=== PATIENT | female | born 1970 | race Caucasian/White ===

== ENCOUNTER 2020-08-27 17:55 | Emergency (ER) | payer BC ==
[~2020-08-27] VITALS: Ht 154.9 cm; Wt 80.3 kg
--- NOTE | 2020-08-27 18:00 | PHYS DOC ---
Past History Past Medical History: Hypertension, Hypothyroid Past Medical History Intentional Wt. loss > 100 lbs General Adult EDM: Chief Complaint: CHEST PAIN HPI: HPI: ".. I was having these high blood pressures.. I think it is because of the diet medication.. I was taking .. this happen once before with I took Jocy D.. I used to take HTN meds.. but I had a intention wt. loss.. over 100 #.. I ve been working hard at it.. going to gym ect.. but last two days.. got some discomfort in my chest and Rt. shoulder...."... 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 Patient has past medical history of hypertension but no longer takes meds because of si gnificant weight loss. Patient does have a history of hypothyroidism. No recent travel or specific ill contacts. Has followed with [facility] in the past for primary care. Also sees an shoe lay out planner for hypothyroidism. No recent travel. No specific ill contacts. No history immunosuppression. No history of previous cardiac disease. Review of Systems: Review of Systems: Constitutional: Denies fever or chills Eyes: Denies change in visual acuity HENT: Denies nasal congestion or sore throat Respiratory: Denies cough or shortness of breath Cardiovascular: Denies chest pain or edema GI: Denies abdominal pain, nausea, vomiting, bloody stools or diarrhea : Denies dysuria Musculoskeletal: Denies back pain or joint pain Integument: Denies rash Neurologic: Denies headache, focal weakness or sensory changes Endocrine: Denies polyuria or polydipsia Lymphatic: Denies swollen glands Psychiatric: Denies depression or anxiety Family History: Family History: Noncontributory to presentation Current Medications: Current Meds: See nursing for home meds Allergies: Allergies: Allergies Coded Allergies Type Severity Reaction Last Updated Verified No Known Drug Allergies 08/27/20 No Physical Exam: PE: Constitutional: Moderate distress, non-toxic appearance. [] HENT: Normocephalic, atraumatic, bilateral external ears normal, oropharynx moist, no oral exudates, nose normal. [] Eyes: PERRLA, EOMI, conjunctiva normal, no discharge. Glasses Neck: Normal range of motion, no tenderness, supple, no stridor. [] Cardiovascular:Heart rate regular rhythm, no murmur [] Lungs & Thorax: Bilateral breath sounds equal apex auscultation [] Abdomen: Bowel sounds normal, soft, no tenderness, no masses, no pulsatile masses. [] Skin: Warm, dry, no erythema, no rash. [] Back: No tenderness, no CVA tenderness. [] Extremities: No tenderness, no cyanosis, no clubbing, ROM intact, no edema. [] No cording appreciated Neurologic: Alert and oriented X 3, normal motor function, normal sensory function, no focal deficits noted. [] Psychologic: Affect anxious, judgement normal, mood normal. [] EKG: EKG: I interpretation EKG shows a sinus rhythm at 74 bpm. Does have bimodal P waves and V1 and 2 leads []. No findings of acute STEMI of contralateral changes. Radiology/Procedures: Radiology/Procedures: [][place] [address] IMAGING REPORT Signed PATIENT: NILE TATE ACCOUNT: [id number] : 1970 LOCATION: ER AGE: 50 SEX: F EXAM STATUS: REG ER ORD. PHYSICIAN: GABRIELLE NICHOLE MD REASON: cp PROCEDURE: PORTABLE CHEST 1V EXAM: Chest, single view. HISTORY: Chest pain. COMPARISON: None. FINDINGS: A frontal view of the chest is obtained. There is no infiltrate, pleural effusion or pneumothorax. The heart is normal in size. IMPRESSION: No acute pulmonary finding. Electronically signed by: Elissa Rehman MD (08/27/2020 6:26 PM) [facility] DICTATED AND SIGNED BY: ELISSA REHMAN MD DATE: 08/27/201824 CC: GABRIELLE NICHOLE MD; PCP,NO ~MTH0 0 Heart Score: Risk Factors: Risk Factors: DM, Current or recent (<one month) smoker, HTN, HLP, family history of CAD, obesity. Risk Scores: Score 0 - 3: 2.5% MACE over next 6 weeks - Discharge Home Score 4 - 6: 20.3% MACE over next 6 weeks - Admit for Clinical Observation Score 7 - 10: 72.7% MACE over next 6 weeks - Early Invasive Strategies Course & Med Decision Making: Course & Med Decision Making Pertinent Labs and Imaging studies reviewed. (See chart for details) Impression: 1. Accelerated hypertension 2. Chest discomfort 3. History of hypothyroidism [] Dragon Disclaimer: Manisha Disclaimer: This electronic medical record was generated, in whole or in part, using a voice recognition dictation system. GABRIELLE NICHOLE MD Aug 27, 2020 18:00
--- NOTE | 2020-08-27 18:07 | EKG ---
[facility] ED [facility] [place] [id number] Test Date: 2020-08-27 Test Time: 18:00:14 Pat Name: NILE TATE Department: Room: Gender: F Bench Precision Assembler: : 1970 Requested By: GABRIELLE NICHOLE Order Number: [id number] Reading MD: Measurements Intervals [place] Rate: 74 P: 59 [place]: 178 QRS: 45 QRSD: 90 T: 50 QT: 398 QTc: 442 Interpretive Statements SINUS RHYTHM LEFT ATRIAL ABNORMALITY ABNORMAL ECG RI6.02 No previous ECG available for comparison
[2020-08-27] MEDS ORDERED: cloNIDine TTS-2 1 PATCH PATCH TD ONE ×2 (18:14→18:30)
[2020-08-27] MEDS ORDERED: IV RINGERS SOLUTION,LACTATED 1,000 ML IV SCH (18:15)
[2020-08-27] MEDS ORDERED: ASPIRIN CHEWABLE 81 MG TABLET. PO ONE (18:15)
[2020-08-27] MEDS ORDERED: cloNIDine HCL 0.1 MG TABLET PO ONE (18:15)
[2020-08-27] MEDS ORDERED: cloNIDine TTS-1 1 PATCH PATCH TD SCH (18:16)
[2020-08-27 18:28] LABS: BASO # 0.1 x10^3/uL (0.0-0.2); BASO % 1 % (0-3); EOS % 1 % (0-3); HEMATOCRIT 45.3 % (36.0-47.0); HEMOGLOBIN 15.3 g/dL (12.0-15.5); LYMPH # 2.9 x10^3/uL (1.0-4.8); LYMPH % 35 % (24-48); MEAN CORPUSCULAR HEMOGLOBIN 32 pg (25-35); MEAN CORPUSCULAR HGB CONC 34 g/dL (31-37); MEAN CORPUSCULAR VOLUME 95 fL (79-100); MONO # 0.9 x10^3/uL (0.0-1.1); MONO % 11 % (0-9); NEUT # 4.3 x10^3uL (1.8-7.7); NEUT % 53 % (31-73); PLATELET COUNT 270 x10^3/uL (140-400); RED BLOOD COUNT 4.76 x10^6/uL (3.50-5.40); RED CELL DISTRIBUTION WIDTH 12.8 % (11.5-14.5); WHITE BLOOD COUNT 8.2 x10^3/uL (4.0-11.0)
--- NOTE | 2020-08-27 18:28 | RAD ---
EXAM: Chest, single view. HISTORY: Chest pain. COMPARISON: None. FINDINGS: A frontal view of the chest is obtained. There is no infiltrate, pleural effusion or pneumo thorax. The heart is normal in size. IMPRESSION: No acute pulmonary finding. Electronically signed by: Elissa Rehman MD (08/27/2020 6:26 PM) [facility]
[2020-08-27 18:39] LABS: CALCIUM 8.6 mg/dL (8.5-10.1); CREATININE 0.9 mg/dL (0.6-1.0); GFR 65.8; POTASSIUM 3.2 mmol/L (3.5-5.1)
[2020-08-27 18:53] LABS: ALBUMIN 3.6 g/dL (3.4-5.0); DIRECT BILIRUBIN 0.1 mg/dL (0.0-0.2); MAGNESIUM 2.2 mg/dL (1.8-2.4); TOTAL BILIRUBIN 0.4 mg/dL (0.2-1.0); TOTAL PROTEIN 7.7 g/dL (6.4-8.2)
[2020-08-27 18:58] LABS: BARBITURATES NEG (NEG); BENZODIAZEPINES NEG (NEG); BILIRUBIN,URINE NEG (NEG); CANNABINOIDS NEG (NEG); CLARITY,URINE CLEAR; COCAINE NEG (NEG); COLOR,URINE STRAW; GLUCOSE,URINE NEG (NEG); METHADONE NEG (NEG); OPIATES NEG (NEG); PHENCYCLIDINE NEG (NEG)
[2020-08-27 18:59] LABS: BACTERIA,URINE FEW /HPF (0-FEW); NITRITE,URINE NEG (NEG); SQUAMOUS EPITHELIAL CELL,UR FEW /LPF; UROBILINOGEN,URINE 0.2 mg/dL (0.2 mg/dL); WBC,URINE OCC /HPF (0-4)
[2020-08-27 19:17] LABS: AMPHETAMINE/METHAMPHETAMINE NEG (NEG)
[2020-08-27 21:00] VITALS: BP 142/54
[2020-08-28 14:13] LABS: THYROID STIM HORMONE (TSH) 5.856 uIU/mL (0.358-3.740)
== END 2020-08-27 21:00 | disposition home or self-care (01) ==
LOC: ER 17:55
DX: I10 Essential (primary) hypertension (principal); R07.89 Other chest pain; E03.9 Hypothyroidism, unspecified
CPT/HCPCS: 36415; 71045; 80048; 80061; 80076; 80307; 81001; 82150; 82550; 83690; 83735; 83880; 84443; 84484; 85025; 85379; 85610; 85730; 93005; 96360; 96361; 99285; J7120; 96365; 96366